=== PATIENT | female | born 1945 | race Caucasian/White ===

== ENCOUNTER → 2025-01-05 12:29 | Outpatient (REF) | payer MEDICARE, SELFPAY ==
--- NOTE | 2025-01-05 14:43 | CARDSERVLU ---
Echocardiogram with Lumason completed after protocol screening completed. Allergies verified.
here for stress echo
Patent IV site: ___new start 22P RFA, pt is right arm only.__
IV site flushed with 0.9% NaCl pre and post administration.
Diluted bolus method utilized to enhance visualization of ventricular sandoval.
Total volume given: __3.0 and 3.0__ mL
see treadmill ECG documentation. walked only 3 min on treadmill, very SOB, test completed early
site dcd at completion of treadmill. Dr. Salinas bedside.
Patient tolerated all procedures well without complications.
== END ==
LOC: RCS 12:29
PROVIDERS: ATTENDING PHYSICIAN Family Medicine
DX: I25.10 Atherosclerotic heart disease of native coronary artery without angina pectoris (principal); E78.00 Pure hypercholesterolemia, unspecified; Z82.49 Family history of ischemic heart disease and other diseases of the circulatory system
CPT/HCPCS: 93017; 93350

== ENCOUNTER 2025-01-08 09:38 | Day surgery (SDC) | payer MEDICARE, SELFPAY ==
[2025-01-07 13:07] VITALS: BMI 28.3
[2025-01-07 13:34] LABS: Hematocrit 39.0 % (37.0-47.0); Hemoglobin 12.8 g/dL (12.0-16.0); Mean Corp Hgb Conc. 32.8 g/dL (33.0-37.0); Mean Corpuscular Volume 87.8 fL (81.0-99.0); Nucleated Red Blood Cells % 0 %; Platelet Count 266 10^3/uL (130-400); Red Cell Dist. Width 13.3 % (11.5-14.5)
[2025-01-07 14:06] LABS: ALT (SGPT) 17 U/L (0-35); AST (SGOT) 23 U/L (14-36); Albumin 4.3 g/dl (3.5-5.0); Alkaline Phosphatase 76 U/L (38-126); Blood Urea Nitrogen 12 mg/dl (7-17); Calcium 10.0 mg/dl (8.4-10.2); Carbon Dioxide 27 mmol/L (22-30); Chloride 104 mmol/L (98-107); Estimated Creatinine Clearance 59 ml/min; Glucose 104 mg/dl (70-99); Potassium 4.4 mmol/L (3.5-5.1); Sodium 140 mmol/L (135-145); Total Protein 6.8 g/dl (6.3-8.2); eGFR > 60.00
[2025-01-08] VITALS (8 sets, daily range): BP systolic 126–156; BP diastolic 63–79
[2025-01-08] MEDS: NSS 210 ML IV (10:18)
[2025-01-08] MEDS: LOW STRENGTH ASPIRIN 81 MG PO (10:19)
--- NOTE | 2025-01-08 11:42 | ITS.CL.PN ---
Addendum entered and electronically signed by Delfino Silva MD 01/08/25 11:57:
Copy to: Dr. Rasheed Rojas MD (kennel supervisor); Dr. Zeinab Ward MD (PCP)
Original Note:
[facility] - Procedure Note
Procedure
Procedure Note:
CARDIAC CATHETERIZATION REPORT
Date of Procedure: 01/08/2025
Referring: Dr. Rasheed Rojas MD
Indication: atypical chest pain, positive cardiac stress test
PROCEDURE(S)
1. left heart catheterization
2. coronary angiography
ACCESS:
1. 6F right radial artery (note: abandoned due to small vessel caliber and inability to pass wire; closure: radial band)
2. 6F left common femoral artery (note: bifurcation high on both groins, seemingly higher on right side; closure: Angioseal x1)
CATHETERS
1. 6F JR4
2. 6F JL4
MODERATE SEDATION: 30 minutes of moderate sedation was utilized. An independent medical physiologist was present to assist with and help manage the patient's level of consciousness and physiologic status.
HEMODYNAMIC DATA
LV 136/16 (EDP 20) mmHg
AO 142/72 (mean 101) mmHg
CORONARY ANGIOGRAPHY
Dominance: right
LM: Normal without disease.
LAD: Large vessel giving rise to a moderate caliber D1 and terminating at the apex. There are trivial luminal irregularities only.
LCx: Large vessel giving rise to a single large branching marginal. There are trivial luminal irregularities only.
RCA: Large vessel giving rise to moderate caliber RPDA, small RPL1, small RPL2, and moderate caliber RPL3. There is no coronary artery disease.
RADIATION: dose 109 mGy; DAP 9.34 Gy*cm2; fluoroscopy time 4.4 min
CONCLUSIONS
1. Trivial luminal irregularities only in a right dominant system
2. Mildly elevated LV filling pressure and no aortic stenosis
RECOMMENDATIONS
1. Primary prevention of coronary artery disease. Recommend starting moderate intensity statin given coronary artery calcium seen on mammography.
2. Further workup for etiology of patient's dyspnea on exertion not related to coronary artery disease. Suspect HFpEF may be playing a role. Recommend complete TTE with diastolic function assessment. Also recommend workup for primary pulmonary
etiologies.
3. 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 Could consider targeted treatment if above does not yield symptomatic improvement.
Copy to: Dr. Rasheed Rojas MD (kennel supervisor); [ ] (PCP)
Signed: Delfino Silva MD, PhD
== END 2025-01-08 14:50 | disposition home or self-care (01) ==
LOC: CATH 09:38
PROVIDERS: ATTENDING PHYSICIAN Student in an Organized Health Care Education/Training Program; FAMILY PHYSICIAN Family Medicine; OTHER PHYSICIAN Internal Medicine Cardiovascular Disease
DX: R07.89 Other chest pain (principal); K21.9 Gastro-esophageal reflux disease without esophagitis; E03.9 Hypothyroidism, unspecified; Z85.3 Personal history of malignant neoplasm of breast; C50.919 Malignant neoplasm of unspecified site of unspecified female breast; Z79.82 Long term (current) use of aspirin; Z79.890 Hormone replacement therapy; Z79.899 Other long term (current) drug therapy; Z90.710 Acquired absence of both cervix and uterus; K44.9 Diaphragmatic hernia without obstruction or gangrene; Z90.49 Acquired absence of other specified parts of digestive tract
CPT/HCPCS: 99152; 99153; 36415; 80053; 85025; 93005; 93458; C1760; C1769; C1894; Q9967